=== PATIENT | male | born 1985 | race Caucasian/White ===

== ENCOUNTER 2017-03-12 15:50 | Observation (INO) | payer BC, OTHER ==
[2017-03-12] MEDS ORDERED: Sodium Chloride 0.9% 1000 ML 1,000 ML IV STA (16:20)
[2017-03-12] MEDS ORDERED: Zofran 4 MG/2 ML VIAL IV ONE (16:20)
[2017-03-12] MEDS ORDERED: MORPHINE SULFATE 10 MG/ML IM ONE (16:20)
[2017-03-12] MEDS ORDERED: PROTONIX 40 MG IV IV ONE ×2 (16:20→16:42)
--- NOTE | 2017-03-12 16:28 | ERPHSYRPT ---
- History of Present Illness Time Seen by Provider: 03/12/17 16:17 Historian: patient Exam Limitations: clinical condition Patient Subjective Stated Complaint: states began having pain at 0500 today in upper right abd. also c/o nausea but no vomiting. denies diarrhea Triage Nursing Assessment: abd guarded, tense. normal bowel sounds. a/o times three. skin w/d, color normal. resp nonlabored. Physician History: PATIENT STATES HE AWAKENED WITH SEVERE UPPER ABDOMINAL PAINS ASSOCIATED WITH NAUSEA, RADIATION OF PAIN TO BACK, DENIES EMESIS, DIARRHEA, FEVER, OR URINARY SYMPTOMS. Timing/Duration: today Activities at Onset: none Quality: cramping, stabbing Abdominal Pain Onset Location: generalized abdomen Pain Radiation: back Severity of Pain-Max: severe Severity of Pain-Current: severe Modifying Factors: Improves With: nothing Associated Symptoms: nausea Previous symptoms: no prior history Allergies/Adverse Reactions: No Known Drug Allergies Allergy (Unverified 03/12/17 16:02) Hx Tetanus, Diphtheria Vaccination/Date Given: No Hx Influenza Vaccination/Date Given: No Hx Pneumococcal Vaccination/Date Given: No - Review of Systems Constitutional: No Fever, No Chills Eyes: No Symptoms Ears, Nose, & Throat: No Symptoms Respiratory: No Symptoms, No Cough, No Dyspnea Cardiac: No Symptoms, No Chest Pain, No Edema, No Syncope Abdominal/Gastrointestinal: Abdominal Pain, Nausea, No Vomiting, No Diarrhea Genitourinary Symptoms: No Symptoms, No Dysuria Musculoskeletal: No Back Pain, No Neck Pain Skin: No Rash Neurological: No Dizziness, No Focal Weakness, No Sensory Changes Psychological: No Symptoms Endocrine: No Symptoms All Other Systems: Reviewed and Negative - Past Medical History Pertinent Past Medical History: Yes Psycho-Social History: Depression - Past Surgical History Past Surgical History: Yes Musculoskeletal: Orthopedic Surgery - Social History Smoking Status: Never smoker Exposure to second hand smoke: No Drug Use: none Patient Lives Alone: No - Nursing Vital Signs Nursing Vital Signs: Initial Vital Signs Temperature 97.2 F 03/12/17 15:54 Pulse Rate 63 03/12/17 15:54 Respiratory Rate 16 03/12/17 15:54 Blood Pressure 188/100 03/12/17 15:54 O2 Sat by Pulse Oximetry 100 03/12/17 15:54 Pain Scale Pain Intensity 4 - Physical Exam General Appearance: moderate distress Eye Exam: PERRL/EOMI Ears, Nose, Throat Exam: normal ENT inspection, pharynx normal, moist mucous membranes Neck Exam: normal inspection, non-tender, supple, full range of motion Respiratory Exam: normal breath sounds, lungs clear, No respiratory distress Cardiovascular Exam: regular rate/rhythm, normal heart sounds Gastrointestinal/Abdomen Exam: soft, normal bowel sounds, tenderness ( EPIGASTRIC RUQ, PERIUMBILICAL ), other (POSITIVE MCLAUGHLIN'S SIGN) Back Exam: normal inspection, normal range of motion, No CVA tenderness, No vertebral tenderness Extremity Exam: normal inspection, normal range of motion, pelvis stable Neurologic Exam: alert, oriented x 3, cooperative, normal mood/affect, nml cerebellar function, sensation nml, No motor deficits SpO2 Interpretation: normal SpO2: 100 Oxygen Delivery: Room Air - CT Exams Abdomen/Pelvis CT Interpretation: Tele-radiologist Report (MODERATELY DISTENDED GALLBLADDER DEMONSTRATING ABNORMAL WALL THICKENING, AND A LEAST 1 GALLSTONE, ) Ordered Tests: Active Orders 24 hr Category Date Time Status Up With Assistance ROUTINE Activity 03/12/17 18:34 Active Admission/Status Order ROUTINE Care 03/12/17 18:34 Active Call Admit Doctor for Orders ON ADMISSION Care 03/12/17 18:35 Active Clean Catch Urine Specimen STAT Care 03/12/17 16:20 Active Code Status Order ROUTINE Care 03/12/17 18:34 Active IV Care Q6H Care 03/12/17 18:34 Active IV Insertion STAT Care 03/12/17 16:20 Active Vital Signs Q4H Care 03/12/17 18:34 Active Consult Surgery ROUTINE Cons 03/12/17 18:34 Active Clear Liquid Diet 03/12/17 Dinner Active ABDOMEN AND PELVIS W CONTRAST [CT] Stat Exams 03/12/17 16:24 Taken AMYLASE Stat Lab 03/12/17 16:24 Completed BLOOD CULTURE Stat Lab 03/12/17 18:10 Received CBC W DIFF AM.LAB Lab 03/13/17 04:00 Ordered CBC W DIFF Stat Lab 03/12/17 16:24 Completed CMP Stat Lab 03/12/17 16:24 Completed LIPASE Stat Lab 03/12/17 16:24 Completed Manual Differential NC Stat Lab 03/12/17 16:24 Completed Urine Triage Profile Stat Lab 03/12/17 16:24 Completed Medication Summary Generic Name Dose Route Start Last Admin Trade Name Freq PRN Reason Stop Dose Admin Piperacillin Sod/Tazobactam Sod 3.375 gm in 100 mls @ 200 mls/hr 03/13/17 00: 00 Zosyn 3.375gm/100 Ml D5w IV 04/12/17 00:00 Q6HT SANJUANITA Sodium Chloride 1,000 mls @ 100 mls/hr 03/12/17 18:45 Sodium Chloride 0.9% 1000 Ml IV 04/11/17 18:44 .Q10H SANJUANITA Morphine Sulfate 4 mg 03/12/17 18:34 Morphine Sulfate 4 Mg Inj IV 03/17/17 18:33 Q3H/PRN PRN PAIN Pantoprazole Sodium 40 mg 03/13/17 10:00 Protonix 40 Mg Iv IV 04/12/17 09:59 Q24H10 SANJUANITA Discontinued Medications Generic Name Dose Route Start Last Admin Trade Name Freq PRN Reason Stop Dose Admin Hydromorphone HCl 1 mg 03/12/17 17:40 03/12/17 17:50 Hydromorphone 1 Mg/Ml Ampule IV 03/12/17 17:41 1 mg STAT ONE Administration Hydromorphone HCl Confirm 03/12/17 17:47 Hydromorphone 1 Mg/Ml Ampule Administered 03/12/17 17:48 Dose 1 mg .ROUTE .STK-MED ONE Sodium Chloride 1,000 mls @ 999 mls/hr 03/12/17 16:20 03/12/17 16:50 Sodium Chloride 0.9% 1000 Ml IV 03/12/17 17:20 999 mls/hr .Q1H1M STA Administration Sodium Chloride Confirm 03/12/17 16:42 Sodium Chloride 0.9% 1000 Ml Administered 03/12/17 16:43 Dose 1,000 mls @ ud .ROUTE .STK-MED ONE Piperacillin Sod/Tazobactam Sod 3.375 gm in 100 mls @ 200 mls/hr 03/12/17 17: 56 03/12/17 18:06 Zosyn 3.375gm/100 Ml D5w IV 03/12/17 18:25 200 mls/hr STAT STA Administration Piperacillin Sod/Tazobactam Sod Confirm 03/12/17 18:05 Zosyn 3.375gm/100 Ml D5w Administered 03/12/17 18:06 Dose 3.375 gm in 100 mls @ IV .STK-MED ONE Morphine Sulfate 10 mg 03/12/17 16:20 03/12/17 16:56 Morphine Sulfate 10 Mg/Ml IM 03/12/17 16:21 Not Given STAT ONE Morphine Sulfate 10 mg 03/12/17 16:39 03/12/17 16:51 Morphine Sulfate 10 Mg/Ml IV 03/12/17 16:40 10 mg STAT ONE Administration Morphine Sulfate Confirm 03/12/17 16:42 Morphine Sulfate 10 Mg/Ml Administered 03/12/17 16:43 Dose 10 mg .ROUTE .STK-MED ONE Ondansetron HCl 4 mg 03/12/17 16:20 03/12/17 16:50 Zofran 4 Mg/2 Ml Vial IV 03/12/17 16:21 4 mg STAT ONE Administration Ondansetron HCl Confirm 03/12/17 16:42 Zofran 4 Mg/2 Ml Vial Administered 03/12/17 16:43 Dose 4 mg .ROUTE .STK-MED ONE Pantoprazole Sodium 40 mg 03/12/17 16:20 03/12/17 16:50 Protonix 40 Mg Iv IV 03/12/17 16:21 40 mg STAT ONE Administration Pantoprazole Sodium Confirm 03/12/17 16:42 Protonix 40 Mg Iv Administered 03/12/17 16:43 Dose 40 mg IV .STK-MED ONE Lab/Rad Data: Laboratory Result Diagrams 03/12/17 16:24 03/12/17 16:24 Laboratory Results 03/12/17 03/12/17 03/12/17 Range/Units 16:24 16:24 16:24 WBC 8.7 (4.0-10.5) K/mm3 RBC 5.42 (4.1-5.6) M/mm3 Hgb 15.7 (12.5-18.0) gm/dl Hct 44.9 (42-50) % MCV 82.8 (78-100) fl MCH 29.0 (26-32) pg MCHC 35.0 (32-36) g/dl RDW 13.6 (11.5-14.0) % Plt Count 147 L (150-450) K/mm3 MPV 10.6 H (6-9.5) fl Segmented Neutrophils 91 H (36.-66.) % Lymphocytes (Manual) 5 L (24-44) % Monocytes (Manual) 4 (0.0-12.0) % Differential Comment NORMAL Platelet Estimate NORMAL (NORMAL) Sodium 133 L (136-145) mEq/L Potassium 3.6 (3.5-5.1) mEq/L Chloride 97 L (98-107) mEq/L Carbon Dioxide 23.8 (21-32) mEq/L Anion Gap 16.2 H (5-15) MEQ/L BUN 14 (9-20) mg/dL Creatinine 0.80 (0.55-1.30) mg/dl Estimated GFR > 60 ML/MIN Glucose 124 H (70-110) MG/DL Calcium 9.1 (8.5-10.1) mg/dL Total Bilirubin 0.70 (0.2-1.0) mg/dL AST 23 (15-37) U/L ALT 33 (12-78) U/L Alkaline Phosphatase 61 (46-116) U/L Serum Total Protein 8.1 (6.4-8.2) gm/dL Albumin 4.4 (3.4-5.0) g/dL Amylase 31 (25-115) U/L Lipase 110 (73-393) U/L Urine Opiates Level POS. (NEGATIVE) Ur Methadone NEG. (NEGATIVE) Urine Barbiturates NEG. (NEGATIVE) Ur Phencyclidine (PCP) NEG. (NEGATIVE) Urine Amphetamine POS. (NEGATIVE) U Benzodiazepine Level NEG. (NEGATIVE) Urine Cocaine NEG. (NEGATIVE) Urine Marijuana (THC) NEG. (NEGATIVE) - Progress Discussed with DrJosefa: Mirna (DISCUSSED WITH DR VELÁSQUEZ AAT 1830 FOR OBSERVATION) , Jian (DISCUSSED WITH DR GARAY AT 1800 FOR SURGICAL CONSULT) - Departure Time of Disposition: 18:40 Departure Disposition: Observation Clinical Impression: ACUTE CHOECYSITIS/CHOLELISTHASIS Condition: Stable Critical Care Time: No
[2017-03-12 16:32] LABS: Mean Cell Volume 82.8 fl (78-100); Mean Platelet Volume 10.6 fl (6-9.5); Platelet Count 147 K/mm3 (150-450); Red Blood Count 5.42 M/mm3 (4.1-5.6); Red Cell Distribution Width 13.6 % (11.5-14.0); White Blood Count 8.7 K/mm3 (4.0-10.5)
[2017-03-12] MEDS ORDERED: MORPHINE SULFATE 10 MG/ML IV ONE (16:39)
[2017-03-12] MEDS ORDERED: Sodium Chloride 0.9% 1000 ML 1,000 ML ONE (16:42)
[2017-03-12] MEDS ORDERED: MORPHINE SULFATE 10 MG/ML ONE (16:42)
[2017-03-12] MEDS ORDERED: Zofran 4 MG/2 ML VIAL ONE (16:42)
[2017-03-12 17:19] LABS: ALBUMIN 4.4 g/dL (3.4-5.0); ALKALINE PHOSPHATASE 61 U/L (46-116); ANION GAP 16.2 MEQ/L (5-15); BLOOD UREA NITROGEN 14 mg/dL (9-20); CHLORIDE 97 mEq/L (98-107); Carbon Dioxide 23.8 mEq/L (21-32); Glucose 124 MG/DL (70-110); LIPASE 110 U/L (73-393); Potassium 3.6 mEq/L (3.5-5.1); SGOT/AST 23 U/L (15-37); SGPT/ALT 33 U/L (12-78); SODIUM 133 mEq/L (136-145); Total Protein 8.1 gm/dL (6.4-8.2)
[2017-03-12 17:33] LABS: Platelet Estimate NORMAL (NORMAL); Total Cells Counted 100
[2017-03-12] MEDS ORDERED: Hydromorphone 1 mg/ml Ampule IV ONE (17:40)
[2017-03-12] MEDS ORDERED: Hydromorphone 1 mg/ml Ampule ONE (17:47)
[2017-03-12] MEDS ORDERED: Zosyn 3.375GM/100 Ml D5W 3.375 GM/100 ML IVPB IV STA (17:56)
[2017-03-12] MEDS ORDERED: Zosyn 3.375GM/100 Ml D5W 3.375 GM/100 ML IVPB IV ONE (18:05)
[2017-03-12] MEDS ORDERED: Sodium Chloride 0.9% 1000 ML 1,000 ML IV SCH (18:45)
[2017-03-12] MEDS: MORPHINE SULFATE 4 MG INJ IV PRN ×2 (20:06→23:32)
[2017-03-12] MEDS ORDERED: Zofran 4 MG/2 ML VIAL IV PRN (22:05)
[2017-03-12] MEDS ORDERED: Ambien 10 MG PO PRN (22:05)
[2017-03-12] MEDS: Zosyn 3.375GM/100 Ml D5W 3.375 GM/100 ML IVPB IV SCH (23:32)
[2017-03-13] MEDS: MORPHINE SULFATE 4 MG INJ IV PRN ×5 (03:28→20:36)
[2017-03-13 05:38] LABS: BASOPHIL % 0.1 % (0.0-0.4); Granulocytes % 77.3 % (36.0-66.0); Lymphocytes % 11.1 % (24.0-44.0); Mean Cell Volume 84.6 fl (78-100); Mean Corpuscular Hemoglobin 29.2 pg (26-32); Mean Platelet Volume 10.6 fl (6-9.5); Monocytes % 10.5 % (0.0-12.0); Platelet Count 131 K/mm3 (150-450); Red Blood Count 5.31 M/mm3 (4.1-5.6); White Blood Count 6.8 K/mm3 (4.0-10.5)
[2017-03-13] MEDS: Zosyn 3.375GM/100 Ml D5W 3.375 GM/100 ML IVPB IV SCH ×2 (05:50→11:46)
[2017-03-13] MEDS ORDERED: Lactated Ringers 1,000 ML IV SCH ×2 (08:00→16:30)
[2017-03-13] MEDS ORDERED: MEFOXIN 2 GM PREMIX** 2 GM/50 ML ML IV SCH (08:00)
--- NOTE | 2017-03-13 08:42 | XRAY ---
Indication: Abdominal pain. Irregular bowel movements. Multiple contiguous axial images obtained through the abdomen and pelvis using 80 cc Isovue 370 contrast only. Comparison: None Lung bases clear with incidental right base calcified granuloma. Heart is not enlarged. Noncontrasted stomach and bowel loops appear nonobstructed. There is mild fluid distended small bowel loops with fluid leveling and some bowel wall thickening, ileus versus enteritis. Mild fecal debris in the ascending and transverse colon. Normal appendix. No free fluid/air. Gallbladder is markedly distended with wall thickening and 2 cm cholesterol stone. No abnormal biliary distention. Spleen is enlarged measuring 14.2 cm in greatest dimension. Remaining liver, pancreas, spleen, adrenal glands, kidneys, ureters, bladder, and aorta appear unremarkable. No pathologically retroperitoneal lymphadenopathy. Osseous structures intact with minimal lower lumbar degenerative changes. Impression: 1. Fluid distended small bowel loops with fluid leveling, ileus versus enteritis. Correlate clinically. 2. Abnormally distended gallbladder with wall thickening and cholesterol stone concerning for cholecystitis. Sonogram may yield further information if clinically warranted. 3. Splenomegaly. Comment: Preliminary interpretation was made by [facility]. No discrepancy. CT DI 21.73
[2017-03-13] MEDS ORDERED: Ambien 10 MG PO PRN (09:43)
[2017-03-13] MEDS ORDERED: MEDICATION INTERVENTION MC PRN (09:51)
[2017-03-13] MEDS ORDERED: Decadron 4 MG INJ IV ONE (09:58)
[2017-03-13] MEDS ORDERED: BRIDION 200MG/2ML IV ONE (09:58)
[2017-03-13] MEDS ORDERED: Zofran 4 MG/2 ML VIAL IV ONE (09:58)
[2017-03-13] MEDS ORDERED: Quelicin Fliptop 200 MG/10 ML IV ONE (09:58)
[2017-03-13] MEDS ORDERED: Zemuron 100 MG/10 ML IV ONE (09:58)
[2017-03-13] MEDS ORDERED: SUBLIMAZE 100 MCG/2 ML IV ONE (09:58)
[2017-03-13] MEDS ORDERED: DIPRIVAN 200 MG/20 ML IV ONE (09:58)
[2017-03-13] MEDS ORDERED: TORAdol 30 mg Injection IV ONE (09:58)
[2017-03-13] MEDS: Cymbalta 30 MG Capsule PO SCH ×2 (09:59→10:01)
[2017-03-13] MEDS ORDERED: AMPHET ASP PO SCH (10:00)
[2017-03-13] MEDS ORDERED: AMPHET PO SCH (10:00)
[2017-03-13] MEDS ORDERED: D AMPHET PO SCH (10:00)
[2017-03-13] MEDS ORDERED: PROTONIX 40 MG IV IV SCH (10:00)
--- NOTE | 2017-03-13 10:06 | XRAY ---
Indication: Pain. Abnormal gallbladder on recent CT. Two-dimensional right upper quadrant abdominal sonogram performed. Comparison: None Gallbladder is normally distended with intraluminal sludge and 2.2 cm gallstone. There is also wall thickening up to 3.5 mm and pericholecystic fluid favoring cholecystitis. Common bile duct measures 3.5 mm. Pancreas not evaluated due to overlying bowel gas. Remaining visualized liver and right kidney appear sonographically unremarkable. Right kidney measures 10.2 cm in length. Impression: Abnormal gallbladder wall thickening, pericholecystic fluid, sludge, and gallstone favoring acute cholecystitis. Pancreas not evaluated.
[2017-03-13] MEDS ORDERED: Lactated Ringers 1,000 ML IV ONE ×2 (12:47→15:25)
[2017-03-13] MEDS ORDERED: Sensorcaine 0.25% 10 ML ONE (12:47)
--- NOTE | 2017-03-13 14:05 | CONS ---
CONSULT DATE: 03/13/[address] Nair was bi consultant for our group came in. HISTORY: Yesterday he had some upper abdominal pain more towards the right. He had some nausea, no vomiting. It radiated to his back. PAST MEDICAL HISTORY: He denies any chronic illnesses. PAST SURGICAL HISTORY: Orthopedic surgery in the past. He denies any abdominal surgeries. HOME MEDICATIONS: None on a regular basis. ALLERGIES: NKDA. FAMILY HISTORY: Negative in regards to this problem. Negative for inflammatory bowel disease or cancer according to the patient. SOCIAL HISTORY: No smoking. No alcohol abuse. He did have some drug use had problems with amphetamines and opiates. REVIEW OF SYSTEMS: Twelve systems reviewed. No chest pain or palpitations. Pertinent for abdominal pain. Negative or noncontributory as above and per preadmission questionnaire. LAB DATA AND TESTS: Liver function tests were okay. Lipase was okay. White blood cell count 8.7, hemoglobin 15.7, PLT 147,000. Ultrasound showed some thickened gallbladder, some gallstones and sludge. CT showed question of ileus versus enteritis and little bit enlarged spleen. PHYSICAL EXAMINATION: GENERAL: No acute distress. HEENT: Sclera nonicteric. NECK: No JVD. CHEST: Equal excursion, nonlabored breathing. CVS: Regular rate and rhythm. ABDOMEN: Soft. There is some tenderness in the right upper quadrant. No rebound currently. EXTREMITIES: No significant edema. NEURO: Alert, moving extremities grossly symmetrically. IMPRESSION: Abdominal discomfort. CT and ultrasound shows cholelithiasis, question of cholecystitis with some wall thickening. Liver function test and lipase are okay. I feel he warrants laparoscopic cholecystectomy possible open. Risks and benefits explained in detail but not limited to bleeding or infection, risk of trocar injury or hernia, small risk bowel, bladder or blood vessel injury, small risk of bile leak, bile duct injury, retained stone or sludge possibly requiring further procedure either open or ERCP, general risk of anesthesia, deep venous thrombosis, pulmonary embolism, pneumonia, perioperative risk of aches, pains, bloating, constipation, and/or loose stools possibly chronic in nature. He understands as well as the possibility that the procedure may not improve his symptoms that he may need further work up and/or testing, other studies or procedures. He could have viral syndrome, enteritis or other etiology. He understands as well as general risk of anesthesia, deep venous thrombosis, pulmonary embolism, pneumonia but not limited to, possibility of the need to convert to open procedure, will proceed laparoscopic cholecystectomy possible open when OR time available. This patient is seen for Dr. Lane Nair who is bi consultant for our group when the consult came in. As he was tied up elsewhere I had to swing by to evaluate and proceed.
[2017-03-13] MEDS ORDERED: DILAUDID 2 MG INJECTION ONE (15:12)
[2017-03-13] MEDS ORDERED: Zofran 4 MG/2 ML VIAL IV PRN (16:08)
[2017-03-13] MEDS: NORCO 5/325 MG PO PRN (18:12)
[2017-03-14] MEDS: MORPHINE SULFATE 4 MG INJ IV PRN ×2 (04:19→07:59)
[2017-03-14] MEDS: NORCO 5/325 MG PO PRN ×2 (05:02→09:39)
[2017-03-14 06:22] LABS: Mean Cell Volume 87.8 fl (78-100); Mean Corpuscular Hemoglobin 29.2 pg (26-32); Platelet Count 147 K/mm3 (150-450); Red Blood Count 4.69 M/mm3 (4.1-5.6); Red Cell Distribution Width 14.4 % (11.5-14.0); White Blood Count 5.6 K/mm3 (4.0-10.5)
[2017-03-14 06:58] LABS: ALBUMIN 3.1 g/dL (3.4-5.0); ALKALINE PHOSPHATASE 50 U/L (46-116); ANION GAP 8.5 MEQ/L (5-15); BLOOD UREA NITROGEN 6 mg/dL (9-20); CHLORIDE 106 mEq/L (98-107); Carbon Dioxide 28.8 mEq/L (21-32); Glucose 118 MG/DL (70-110); SGOT/AST 22 U/L (15-37); SGPT/ALT 26 U/L (12-78); SODIUM 139 mEq/L (136-145); Total Protein 6.8 gm/dL (6.4-8.2)
[2017-03-14 07:50] VITALS: BP 131/76; PULSE 75; O2SAT 94
--- NOTE | 2017-03-14 09:03 | PCM.DCORD ---
- Discharge Discharge Date: 03/14/17 Prescriptions: Continue Duloxetine HCl 30 mg [Cymbalta 30 MG Capsule] 60 mg PO DAILY Amphet Asp/Amphet/D-Amphet [Adderall 30 mg Tablet] 30 mg PO DAILY Zolpidem Tartrate [Ambien] 10 mg PO HS PRN PRN PRN Reason: sleep Follow up with: TYRESE MICHAELS [COURTESY STAFF] - 03/23/17 9:15 am ([facility]) [facility] [Primary Care Provider] - 1 Week
--- NOTE | 2017-03-16 09:14 | OP ---
SURGERY DATE/TIME: 03/13/2017 1340 PREOPERATIVE DIAGNOSIS: Acute right upper quadrant pain, symptomatic cholelithiasis with acute exacerbation of chronic cholecystitis. POSTOPERATIVE DIAGNOSIS: Acute right upper quadrant pain, symptomatic cholelithiasis with acute exacerbation of chronic cholecystitis. PROCEDURE: Laparoscopic cholecystectomy. SURGEON: Dr. Kurtis Mckeon. ANESTHESIA: General. ESTIMATED BLOOD LOSS: Minimal. INDICATIONS: As noted above. Risks and benefits explained in detail but not limited to and consent obtained. DESCRIPTION OF PROCEDURE AND FINDINGS: The patient was taken to the OR. General anesthesia was induced. Abdomen prepped and draped in the usual sterile fashion. After official time out and no disagreement with planned procedure, a transverse incision made at the supraumbilical area. Fascia grasped and pulled upward. Veress needle inserted and tested with saline. Pneumoperitoneum accomplished insufflating opening pressure of 0-15. An 11 mm bladeless port and camera were inserted without difficulty followed by two - 5 mm right upper quadrant ports and 5 mm epigastric port and was later switched to 12 mm port. It should be noted that this patient did have a ileus whether related to viral syndrome or other etiology is unclear. The appendix was normal. There did not appear to be any dung purulence to suggest extra-visceral issues, viral syndrome or other etiology is unclear. He had quite gas-filled loops of small bowel but no obvious evidence of any obstruction. Back down to the gallbladder elevated upwards. It was felt needed to decompress some of the gas. Veress needle inserted at this time through separate stab wound and removed about 20 cc. On withdrawal allowing the gallbladder to be grasped. It was then dissected from posterior, lateral to anterior fashion. It took quite some time but slowly and carefully accomplished. Again 12 port was placed in the epigastrium. Slowly and carefully cystic duct and infundibular junction and the main cystic artery were slowly and carefully skeletonized until a critical view was obtained both anteriorly and posteriorly this took quite some time given extensive inflammatory reaction. Additional oozing and bleeding side branch off the cystic artery that required clipping as well. Slowly and carefully cystic duct, infundibular junction slowly skeletonized until critical view was obtained both anteriorly and posteriorly. Once this was accomplished cystic duct was then clipped x3 and divided in usual fashion. Main cystic artery clipped x3 in usual fashion. Gallbladder slowly and carefully dissected free from its dense almost concrete attachments to the liver bed staying directly on the gallbladder wall had oozing but with slow and careful dissection staying directly on the gallbladder wall clipping additional oozing side branches off the cystic artery directly on the gallbladder wall as necessary this quite some time but slowly and carefully accomplished. Dissecting it free from its dense almost concrete attachments to the liver bed. Just prior to releasing from final attachments to the anterior edge of the gallbladder there were no signs of any active bleeding or bile leakage from the liver bed itself. Clips were noted to be in place in cystic duct and cystic artery stumps. The gallbladder was released from final attachments to the anterior edge of the liver. Gallbladder placed in EndoCatch bag as it was too large to put in a Pleatman sac. The port was replaced. LENIN drain placed in subhepatic space and out through a lateral port incision and placed to bulb suction. With the aid of EndoCatch to get around the gallbladder this required enlarging the epigastric fascial defect slightly allowing the gallbladder to be pulled up. It was then opened, decompress the residual bile and multiple moderately enlarged stones carefully removed with the aid of Doretha clamp, this took some time but slowly and carefully accomplished. Finally the gallbladder was able to be pulled free and passed off. Copious amount of irrigation accomplished lateral to the liver and subhepatic space irrigating until clear. LENIN drain placed subhepatic space out through lateral port incision as mentioned above. Good hemostasis was noted. The epigastrium was closed with running #1 PDS. Copious amount of irrigation irrigating until clear. 0.25% Marcaine local injected along the skin incision fascial defect. Skin incision closed with 4-0 Vicryl. Steri-Strips and sterile dressing applied. The patient tolerated the procedure well. There were no immediate complications. Findings discussed with the family out in the waiting area. This was a long difficult dissection given that the severe cholecystitis warranted an addition 40 to 45 minutes to dissection time given the extensive inflammatory reaction but had been accomplished as safely and carefully as possible.
--- NOTE | 2017-03-16 13:00 | SSS ---
DISCHARGE DIAGNOSIS: CHOLECYSTITIS. CONSULTANTS: Dr. Nair. OPERATIVE PROCEDURE: Laparoscopic cholecystectomy. HOSPITAL COURSE: The patient is a 30 year-old white male patient presenting to the emergency room with abdominal pain. CT scan evaluation showed the patient's gallbladder to be with thickened wall with pericholecystic fluid, sludge and gallstone favoring acute cholecystitis. The patient had surgical consultation. He was taken for surgery on 03/13/2017. The patient has done well postoperatively. He has been ambulating the nicole. He is afebrile with stable vital signs. His metabolic panel after surgery showed glucose 118, BUN 6, creatinine 0.76. Liver enzymes were normal. White blood cell count 5,600, hemoglobin 13.7, PLT count 447,000. The patient's urine drug triage was positive for amphetamines and opiates. Apparently he has been treated at the [facility] with medications for this. He has attention deficit disorder for which he takes medication for. He receives pain medication for his abdominal pain. The patient is ready for discharge home at this time and will follow up in the surgeon's office. He does still have a drain in place. He has an appointment on 03/23/[address] Orr. In the meantime he has been given a script for [place] 5/325 mg by the surgeon and he can continue his usual home medications otherwise.
== END 2017-03-14 09:59 | disposition home or self-care (01) ==
LOC: ED 15:50 → MED SURG 19:01 → UNDOADMOB 19:01 → UNDODISOB 03-14 09:59
PROVIDERS: ADMIT Family Medicine; ATTEND Family Medicine
PROC: 0FT44ZZ Resection of Gallbladder, Percutaneous Endoscopic Approach (ICD-10-PCS; principal; 2017-03-12)
DX: K80.10 Calculus of gallbladder with chronic cholecystitis without obstruction (principal)
CPT/HCPCS: 00790; 36000; 36415; 74177; 76705; 80053; 80307; 82150; 83690; 85025; 85027; 87040; 88304; 96360; 96365; 96374; 96375; 99285; G0378; J0330; J0694; J1100; J1170; J1885; J2270; J2405; J2543; J2704; J3010; A9270-GY